=== PATIENT | male | born 1990 | race Two or more races ===

== ENCOUNTER 2025-02-14 15:57 | Emergency (ER) | payer MEDICAID, OTHER ==
[~2025-02-14] VITALS: Ht 165.1 cm; Wt 75.0 kg
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
--- NOTE | 2025-02-14 18:09 | DVH ---
CLINICAL INDICATION: r/o fracture TECHNIQUE: 5 radiographic views of the chest x-ray and right ribs were obtained. Comparison: None FINDINGS/IMPRESSION: No infiltrates or effusions. No pneumothorax No displaced rib fractures. No pleural effusions.
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
--- NOTE | 2025-02-14 18:12 | DVH ---
Indication: r/o fracture Technique: XY LUMBAR SPINE 3 VIEWXY Comparison: None FINDINGS/IMPRESSION: Lumbar heights are maintained. No significant disc space narrowing. Alignment preserved.
[2025-02-14] MEDS ORDERED: IBUP-1455 PO (18:14)
[2025-02-14 18:21] VITALS: BP 132/88; PULSE 88; RESP 16; TEMP 98.2; O2SAT 97
== END 2025-02-14 18:24 | disposition home or self-care (01) ==
LOC: ER 16:06
DX: S40.022A Contusion of left upper arm, initial encounter (principal); M54.50 Low back pain, unspecified; M54.2 Cervicalgia; X58.XXXA Exposure to other specified factors, initial encounter; Y93.89 Activity, other specified; Y92.89 Other specified places as the place of occurrence of the external cause; Y99.8 Other external cause status
CPT/HCPCS: 71101; 72070; 72100